=== PATIENT | male | born 1940 | race African-American/Black ===

== ENCOUNTER 2016-12-12 22:02 | Inpatient (IN) | payer MEDICARE, OTHER ==
--- NOTE | ~2016-12-12 | HP ---
Unit #: [id number] #: [id number] Patient: DEMARIO OCAMPO [id number] [address] [address] [id number] I MR#: [id number] NAME: DEMARIO OCAMPO. ROOM: 242 Age: 76 Sex: M Admission Date: 12/13/2016 : 1940 Attending Physician: Holli Noe M.D. Primary Care Physician: Satinder Villagomez M.D. HISTORY AND PHYSICAL PRESENTING COMPLAINT Patient was admitted for complaints of pain in his right knee and left leg with a diagnosis of possible septic arthritis. HISTORY OF PRESENT ILLNESS Patient had undergone left total hip replacement approximately a week ago and was transferred to rehab and was sent back because of increased pain in his left leg and right knee and, also, x-rays performed at the rehab center has possible fracture of his femur and, also, he has been suffering from postop anemia. He was transferred to the emergency room in [place] and the ER physician admitted the patient to the hospital for postop management, anemia, and possible septic arthritis of his right knee. PAST HISTORY He has history of hypertension, hyperlipidemia, bladder cancer, arthritis, and BPH. MEDICATIONS His current medications are: 1. Ascorbic acid. 2. Amlodipine. 3. Gabapentin. 4. Tamsulosin. 5. Atorvastatin. 6. Ferrous sulfate. PRIOR SURGERY He has had a right hip replacement and a recent left hip replacement. FAMILY HISTORY Not significant. PERSONAL AND SOCIAL HISTORY Currently single. Lives at home. He has one child. REVIEW OF SYSTEMS Positive for hypertension, hyperlipidemia, and bladder cancer. PHYSICAL EXAMINATION VITAL SIGNS: He currently has a temperature of 99, heart rate 97 per minute, and blood pressure 95/63. HEAD AND NECK: Normal. CARDIOVASCULAR: Heart: S1 and S2 heard. RESPIRATORY: Bilateral breath sounds heard. Unit #: [id number] #: [id number] Patient: DEMARIO OCAMPO ABDOMEN: Soft. No organomegaly. Bowel sounds present. MUSCULOSKELETAL: Left hip: Wound looks well. Has some swelling of the thigh. Has some (1) of the wound. Otherwise, unremarkable. Right knee: He has swelling, effusion, there is painful range of motion, and is tender to palpation. DIAGNOSTIC STUDIES IMAGING: X-ray of his left hip and femur reveal essentially negative, other than the recent total hip without any evidence of fracture. X-ray of the right knee reveals osteoarthritis. LABORATORY: His hemoglobin was 7.6, white count of 7, and platelets of 252,000. IMPRESSION 1. Postop anemia secondary to acute blood loss. 2. Painful right knee. Rule out septic arthritis. 3. Status post left total hip replacement. PLAN He has been admitted to the hospital for management of his postop anemia and evaluation for possible septic arthritis. He has already been given 1 unit of packed cells by the ER physician and his x-rays have been reviewed by me, namely his hip and femur. They reveal a left hip replacement without any evidence of fracture or other abnormality. His hemoglobin at time of admission is 7.6. So, we will try to aspirate his right knee and will rule out sepsis and also I am going to have Dr. Seay evaluate from a medical standpoint. Dictated by Justen Garcia/gustavo TD: 12/14/2016 13:28 JOB #: [id number] HISTORY AND PHYSICAL X Holli Noe MD X HISTORY AND PHYSICAL
--- NOTE | ~2016-12-12 | CR170 ---
[facility] A Service of [facility] RADIOLOGY TEXT RESULTS PATIENT: DEMARIO OCAMPO LOCATION: C2A 242- : 39 UNIT #: [id number] AGE: [address]: Holli Noe MD SEX: M ORDER DR: [id number] [facility] [address] [place], [place] [address] [id number] I MR#: [id number] Acc #: [id number] NAME: DEMARIO OCAMPO. : 1940 SEX: M STUDY DATE/TIME: 12/12/2016 22:23 UNIT: [facility] ROOM: 242 STUDY DESCRIPTION: CR Knee 2 Views Rt Attending Physician: Holli Noe M.D. Ordering Physician: Mahad Perla D.O. Primary Care Physician: Satinder Villagomez M.D. MEDICAL IMAGING REPORT This report is preliminary unless electronic signature is present EXAM Knee 2 views right HISTORY Right knee pain for 2 weeks. No known injury. COMMENT 2 views of the right knee reviewed. There is no prior study of the right knee. There is a moderate-sized suprapatellar joint effusion and there is probably thickening of the distal quadriceps tendon. There is tricompartmental osteoarthritis, moderate, but no acute fractures appreciated. Vascular calcifications are present. Etiology of the joint effusion is nonspecific and it could be related to osteoarthritis but please exclude any clinical concern for septic arthritis. The appearance of the thickening of the quadriceps tendon raises concern for tendinopathy. If this is a concern, it is best pursued with a non-emergent MRI of the knee. IMPRESSION 1. Moderate tricompartmental osteoarthritis with a moderate-sized suprapatellar joint effusion. The joint effusion is probably due to the arthritis but please exclude any clinical concern for septic joint. If there is concern for infection, fluid sampling recommended. 2. Concern for some thickening of the distal quadriceps tendon at the insertion on the patella. This appearance raises the possibility of some type of tendinopathy and if this is a clinical concern, it is best further evaluated with a non-emergent MRI of the knee if the patient is a candidate. No acute fracture or dislocation. Dictated by... [facility] A Service of [facility] RADIOLOGY TEXT RESULTS PATIENT: DEMARIO OCAMPO LOCATION: [facility] 242-01 : 39 UNIT #: [id number] AGE: [address]: Holli Noe MD SEX: M ORDER DR: Danae Sharma M.D. THIS IS AN ELECTRONICALLY VERIFIED REPORT Danae Sharma M.D. at 12/13/2016 10:25 AM PRERNA/moy TD: 12/13/2016 05:14 JOB #: [id number] MEDICAL IMAGING REPORT COPY
--- NOTE | ~2016-12-12 | CR150 ---
[facility] A Service of [facility] RADIOLOGY TEXT RESULTS PATIENT: DEMARIO OCAMPO LOCATION: C2A 242 : 39 UNIT #: [id number] AGE: [address]: Holli Noe MD SEX: M ORDER DR: [id number] [facility] [address] [place], [place] [address] [id number] I MR#: [id number] Acc #: [id number] NAME: DEMARIO OCAMPO : 1940 SEX: M STUDY DATE/TIME: 12/12/2016 22:26 UNIT: [facility] ROOM: 242 STUDY DESCRIPTION: CR Hip Min 2 Views Lt Attending Physician: Holli Noe M.D. Ordering Physician: Mahad Perla D.O. Primary Care Physician: Satinder Villagomez M.D. MEDICAL IMAGING REPORT This report is preliminary unless electronic signature is present EXAM Pelvis and left hip on 12/12 at 2226 hours INDICATIONS Left hip pain for the last 2 weeks. No known trauma. FINDINGS AP view of the pelvis was obtained in addition to a cross-table lateral view of the left femur. Comparison is made with the postoperative view dated 12/06/2016. Skin taylor remain in place over the left hip. Bilateral hip arthroplasties are present. These show normal alignment. There is still some soft tissue gas in the proximal thigh on the left, but it is improved since the prior study. There are no fractures. Atherosclerotic calcifications are present. IMPRESSION No acute fracture. Both hip arthroplasties demonstrate normal alignment. There is improved but persistent soft tissue gas in the left proximal thigh. This is presumably related to the recent hip arthroplasty in the absence of signs of infection. Dictated by... Nicholas Dyer Jr., M.D. THIS IS AN ELECTRONICALLY VERIFIED REPORT Nicholas Dyer Jr., M.D. at 12/13/2016 6:05 AM SOBIAK/moy TD: 12/13/2016 05:19 JOB #: [id number] [facility] A Service of [facility] RADIOLOGY TEXT RESULTS PATIENT: DEMARIO OCAMPO LOCATION: [place] [address]-01 : 39 UNIT #: [id number] AGE: [address]: Holli Noe MD SEX: M ORDER DR: MEDICAL IMAGING REPORT COPY
--- NOTE | ~2016-12-12 | CR106 ---
[facility] A Service of [facility] RADIOLOGY TEXT RESULTS PATIENT: DEMARIO OCAMPO LOCATION: C2A 242 : 39 UNIT #: [id number] AGE: [address]: Holli Noe MD SEX: M ORDER DR: [id number] [facility] [address] [place], [place] [address] [id number] I MR#: [id number] Acc #: [id number] NAME: DEMARIO OCAMPO : 1940 SEX: M STUDY DATE/TIME: 12/13/2016 22:28 UNIT: [facility] ROOM: 242 STUDY DESCRIPTION: CR Femur 2 Views Lt Attending Physician: Holli Noe M.D. Ordering Physician: Mahad Perla D.O. Primary Care Physician: Satinder Villagomez M.D. MEDICAL IMAGING REPORT This report is preliminary unless electronic signature is present EXAM Left femur 12/12 2228 hours INDICATIONS Left hip pain for 2 weeks. No trauma. FINDINGS 4 views of the left femur were obtained. The patient has a well-positioned left hip arthroplasty. No fractures are identified. There is osteoarthritis in all 3 compartments of the knee and there is diffuse atherosclerotic disease. Patient is osteopenic as well. Soft tissue gas in the lateral proximal thigh is presumably related to the recent surgery in the absence of signs of infection. IMPRESSION Well-positioned left hip arthroplasty. No fracture. There is osteopenia in addition to osteoarthritis in the knee. Soft tissue gas in the proximal thigh is presumably related to recent hip replacement in the absence of signs of infection. Dictated by... Nicholas Dyer Jr., M.D. THIS IS AN ELECTRONICALLY VERIFIED REPORT Nicholas Dyer Jr., M.D. at 12/16/2016 7:17 AM [place] TD: 12/13/2016 06:17 JOB #: [id number] MEDICAL IMAGING REPORT COPY
--- NOTE | ~2016-12-12 | CO ---
Unit #: [id number] #: [id number] Patient: DEMARIO OCAMPO [id number] [address] [address] [id number] I MR#: [id number] NAME: DEMARIO OCAMPO. ROOM: 242 Age: 76 Sex: M Admission Date: 12/13/2016 : 1940 Attending Physician: Holli Noe M.D. Primary Care Physician: Satinder Villagomez M.D. CONSULTATION REPORT REASON FOR CONSULTATION Medical management. HISTORY OF PRESENT ILLNESS Mr. Ocampo is a 76-year-old, -[place] gentleman patient of Dr. Noe's who apparently was at the correction and tried to have physical therapy; however, was unable secondary to a right knee swelling and left thigh tenderness. Patient was admitted per Dr. Noe. He is status post aspiration of the knee joint after x-ray found with some knee joint effusion and there was also some question of tendonitis on the plain x-ray. Chest x-ray was unremarkable and hip x-ray was also without any acute findings. His chemistry panel is unremarkable, except for slightly elevated direct bili of 0.3 and indirect bili of 1.4, otherwise unremarkable chemistry. White count at 7.4 and H and H 8.4 and 25.2. Patient denies any other complaints other than swelling and pain in the right knee and left thigh. Denies any fevers. Denies any nausea or vomiting. Denies any chills. Denies any headache, dizziness, chest pain, or shortness of air. REVIEW OF SYSTEMS So, 12-point review of systems on this patient is basically negative, except as above. PAST MEDICAL HISTORY Significant for hypertension, dyslipidemia, bladder cancer, and BPH. PAST SURGICAL HISTORY Significant for left shoulder surgery and hernia repair. CURRENT MEDICATIONS He is on: 1. Lipitor. 2. Lortab. 3. B12. 4. Neurontin. 5. Ferrous gluconate. 6. Norvasc. 7. Flomax. 8. Melatonin. 9. IV fluids with some D5. ALLERGIES No known drug allergies. Unit #: [id number] #: [id number] Patient: DEMARIO OCAMPO SOCIAL HISTORY No current history of tobacco, alcohol, or illicit drugs. FAMILY HISTORY Unremarkable. PHYSICAL EXAMINATION GENERAL APPEARANCE: Patient is a 76-year-old gentleman in no acute distress. VITAL SIGNS: BP 118/49, heart rate 81, respirations 17, and temperature 98. HEENT: Head is atraumatic. Pupils are equal, round, and reactive to light. Extraocular muscles intact. Oropharynx clear. NECK: Supple. No mass, no JVD, and no bruits. CHEST: Diminished at bases, but generally clear. CARDIOVASCULAR: S1 and S2. No murmurs. ABDOMEN: Soft, nontender, and nondistended. LOWER EXTREMITIES: Without any cyanosis, clubbing, or edema. There is mild swelling over the right knee and tenderness at the left thigh. NEUROLOGIC: Without any focal deficits. Alert and oriented. Answering questions appropriately. DIAGNOSTIC STUDIES As above in HPI. ASSESSMENT AND PLAN 1. Right knee effusion with some questionable tendonitis. Status post aspiration. Cultures pending along with the blood cultures are pending. White count unremarkable. Patient is afebrile. 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 Follow up on cultures. Admitted to orthopedic service. 2. Hypertension, currently stable. 3. Dyslipidemia on statin. 4. History of BPH on Flomax. 5. GI and DVT prophylaxes. Will start on Pepcid and put on TRAMAINE hose. 6. Anemia of chronic disease. Monitor H and H. I would like to thank Dr. Noe for allowing us to participate in this patient's care. Will follow the patient along with you. Dictated by... Justen Cruz/gustavo TD: 12/14/2016 10:00 JOB #: [id number] Unit #: [id number] #: [id number] Patient: DEMARIO OCAMPO CONSULTATION REPORT X Jean-Pierre Gross MD CONSULTATION REPORT
--- NOTE | ~2016-12-12 | DS ---
Unit #: [id number] #: [id number] Patient: DEMARIO OCAMPO [id number] [address] [address] [id number] I MR#: [id number] NAME: DEMARIO OCAMPO. ROOM: 242 Age: 76 Sex: M Admission Date: 12/13/2016 : 1940 Discharge Date: 12/14/2016 Attending Physician: Holli Noe M.D. Primary Care Physician: Satinder Villagomez M.D. DISCHARGE SUMMARY FINAL DIAGNOSES 1. Acute exacerbation of osteoarthritis right knee. 2. Postop anemia secondary to acute blood loss. 3. Status post left total hip replacement. PRESENTING COMPLAINT This 76 year old [facility] fracture and septic arthritis of the right knee. He was evaluated by the ER physician and admitted for the diagnosis of possible septic knee and postop anemia secondary to blood loss. The patient denies any history of trauma or fall at the rehab. He had x-rays done at [facility] and was told has possible fracture of the left femur. PAST MEDICAL HISTORY He has history of hypertension. hyperlipidemia, arthritis, bladder cancer. PAST SURGICAL HISTORY Rotator cuff surgery to his left shoulder, and both hip replacement and hernia repair. PERSONAL AND SOCIAL HISTORY He is currently single, retired, nonsmoker. FAMILY HISTORY Not significant. REVIEW OF SYSTEMS Addressed in the history and physical. PHYSICAL EXAMINATION VITAL SIGNS: He is afebrile. Pulse 91 per minute. Blood pressure 126/63. HEAD AND NECK: Examination is normal. CARDIOVASCULAR SYSTEM, RESPIRATORY AND ABDOMEN: Within normal limits. EXTREMITIES: Left foot wound is healing well. He has minimal spotting. His right knee has swelling, effusion and painful range of motion. DIAGNOSTIC STUDIES IMAGING: X-rays of his left hip and femur done were essentially negative for any fracture other than a left hip total hip replacement. COURSE IN THE HOSPITAL The patient was admitted by the ER physician to rule out septic knee. He also was identified to have a hemoglobin of 7.4. So, he had transfusion one unit of packed cells. Post admission, his hemoglobin was 8.4. He has Unit #: [id number] #: [id number] Patient: DEMARIO OCAMPO been on iron supplements. His right knee had swelling, effusion and thus painful range of motion. His right knee was aspirated and sent for gram stain, culture and cell count. His gram stain was negative. Cell count was 1,663. Culture report is pending. Clinical findings were suggestive of exacerbation of osteoarthritis. So, 80 mg of Depo-Medrol and 5 mL of 1% Xylocaine was injected into the right knee. Today, his right knee is feeling much better. He is able to actively flex and extend and his swelling and effusion have subsided. His left hip wound is unchanged. The swelling seems to be resolving and his wound has minimal spotting and is unremarkable. His hemoglobin done today is 8.8 and white count of 8.3, platelets 322,000. So, he has been started on physical therapy with toe-touch ambulation with a walker. At this time, from an orthopaedic standpoint, he is able to return back to rehab. We will continue with the same restrictions namely toe-touch ambulation to his left lower extremity and continue with the total hip precautions. He will resume his Xarelto 10 mg daily and he will continue with his regular medications. His sutures can be removed in two weeks if it looks well and he will be followed in my office in three weeks. If any problems, to contact my office. Dictated by... Justen Garcia/tommie TD: 12/14/2016 13:16 JOB #: [id number] DISCHARGE SUMMARY X Holli Noe MD X DISCHARGE SUMMARY
--- NOTE | ~2016-12-12 | CO ---
Unit #: [id number] #: [id number] Patient: DEMARIO OCAMPO [id number] [address] [place], [place] [address] [id number] I MR#: [id number] NAME: DEMARIO OCAMPO. ROOM: 242 Age: 76 Sex: M Admission Date: 12/13/2016 : 1940 Attending Physician: Holli Noe M.D. Primary Care Physician: Satinder Villagomez M.D. CONSULTATION REPORT The patient was admitted to Dr. Holli Noe. REASON FOR CONSULTATION Increasing CRP and fever. HISTORY OF PRESENT ILLNESS This is a 76-year-old male, status post left total hip replacement approximately 1-1/2 weeks ago. The patient was at the rehab facility when he began having pain in his right knee. The patient reports that his left leg has overall been getting better; however, per H and P, he did complain of some initial left leg pain. X-rays were done and he was sent to the hospital for further evaluation for concern. The patient had a film on his right knee and that did show effusion and he is status post arthrocentesis. Orthopedics is also following along with this patient. PAST MEDICAL HISTORY Include hypertension, hyperlipidemia, bladder cancer in 2011, arthritis, and BPH. ALLERGIES No known allergies. MEDICATIONS The patient is not currently on any antibiotics or other medications. Please refer to the patient's MAR. SOCIAL HISTORY The patient denies any alcohol or tobacco or IV drug use. The patient currently is in a rehab facility. REVIEW OF SYSTEMS The patient denies any fevers, chills, nausea, vomiting, or diarrhea. He denies any shortness of breath, cough, or chest pain. He does report some muscular pain in his right knee and also his left hip, where he recently had surgery; however, these are both getting better. PHYSICAL EXAMINATION VITAL SIGNS: Temperature is 97.9 with a T-max of a 100.2 since admission; pulse is 88; blood pressure is 122/66; and respiratory rate is 16. GENERAL: This is no apparent distress male, who is sitting in the bed comfortably, eating breakfast when I entered the room. HEENT: His pupils are equal. NECK: Supple. CARDIOVASCULAR: S1, S2. Regular rate and rhythm. Unit #: [id number] #: [id number] Patient: DEMARIO OCAMPO PULMONARY: Clear to auscultation bilaterally. No wheezes or rhonchi noted. ABDOMEN: Positive bowel sounds. Soft and nontender with no organomegaly appreciated. EXTREMITIES: Left hip shows incision with taylor with some scant serous drainage. There is no warmth or erythema noted. He also had a right knee with some minimal warmth. Mild edema, but he is able to move his knee up and down. DIAGNOSTIC STUDIES LABORATORY RESULTS: BUN 15, creatinine 0.9, sodium 140, potassium 3.8, chloride 105, CO2 26, BUN 15, creatinine 0.9, bilirubin 1.7. AST 30, ALT is 26. Lactic acid was 1.1. Procalcitonin 0.07. CRP is 20. White blood cell count 8.1, hemoglobin 7.7, hematocrit 22.8, platelets 360. Sed rate 111. Fluid analysis from his arthrocentesis reports total neutrophil count of 1663 with less than 10,000 RBCs, 95% neutrophils, and 1% lymphocytes. Urinalysis is unremarkable. Microbiology report showed 12/12/2016, blood cultures are negative. Synovial fluid on 12/13/2016 shows no growth and negative Gram stain. IMAGING STUDIES: Left femur films shows well-positioned hip arthroplasty with no fracture. Soft-tissue gas thought to be related to recent hip placement. Knee film shows moderate osteoarthritis with moderate-sized suprapatellar joint infusion. IMPRESSION This is a 76-year-old male, status post recent left total hip arthroplasty approximately 1-1/2 weeks ago. The patient now presents with increasing right knee pain and some resolving left hip pain. The patient was noted to have some low-grade fever and abnormal x-ray of his right knee showing effusion. The patient is status post arthrocentesis. Fluid analysis is not consistent with septic arthritis and cultures are all negative. He has been off antibiotics. The patient's increasing CRP and sedimentation rate may be related to recent surgery and arthritis. At this time, we would recommend to hold antibiotics. His fever has resolved and it may have been reactive to current process, but would continue to follow and white blood cell count has been normal. We will also recommend if the patient is transferred back to rehab to follow up on CRP and sed rate to make sure the patient is improving and monitor. Thank you for allowing us to participate in the care of this patient. Further recommendations to follow pending the patient's clinical course. Dictated by... Ishaan KeysPMarvelRMarvelNMravel for Justen Hayes/dionna TD: 12/16/2016 06:53 JOB #: [id number] Unit #: [id number] #: [id number] Patient: DEMARIO OCAMPO CONSULTATION REPORT X X CONSULTATION REPORT
--- NOTE | ~2016-12-12 | CR72 ---
[facility] A Service of [facility] RADIOLOGY TEXT RESULTS PATIENT: DEMARIO OCAMPO LOCATION: C2A [address] : 39 UNIT #: [id number] AGE: [address]: Holli Noe MD SEX: M ORDER DR: [id number] [facility] [address] [place], [place] [address] [id number] I MR#: [id number] Acc #: [id number] NAME: DEMARIO OCAMPO. : 1940 SEX: M STUDY DATE/TIME: 12/12/2016 22:22 UNIT: [facility] ROOM: [facility] STUDY DESCRIPTION: CR Chest Single View Portable Attending Physician: Holli Noe M.D. Ordering Physician: Mahad Perla D.O. Primary Care Physician: Satinder Villagomez M.D. MEDICAL IMAGING REPORT This report is preliminary unless electronic signature is present EXAM Chest x-ray, 12/12/2016. HISTORY 76-year-old male postop recent left hip arthroplasty surgery. Fever. TECHNIQUE AP portable chest x-ray. FINDINGS The lungs are expanded and clear. No visible pulmonary infiltrate or pleural effusion. Heart size and pulmonary vascularity are within normal limits. No change since the preoperative chest x-ray of 12/02/2016. IMPRESSION No active disease. The lungs are clear. No change since 12/02/2016. Dictated by... Yung Morales M.D. THIS IS AN ELECTRONICALLY VERIFIED REPORT Yung Morales M.D. at 12/13/2016 10:17 AM JULIETH/moy TD: 12/13/2016 05:09 JOB #: [id number] MEDICAL IMAGING REPORT COPY
[~2016-12-12 22:02] MED LIST: AMLODIPINE BESY10 MG PO; ASCORBIC ACID500 M4 PO; BENADRYL25 M1 PO; FERROUS SULFATE PO; FLOMAX0.4 M1 PO; HYDROCODON-ACE1 EAC7 PO; IBUPROFEN800 MG PO; LATANOPROST2.5 ML; LIPITOR PO; LIPITOR20 MG PO; LORTAB 7.51 TAB DOB; NEURONTIN PO; TYLENOL #3 PO
[2016-12-12 22:54] LABS: BASOPHIL% 0.7 % (0-2.5); EOSINOPHIL# 0.1 X10e3 (0-0.7); EOSINOPHIL% 0.9 % (0.0-7.0); HEMATOCRIT 22.8 % (38.0-50.0); HEMOGLOBIN 7.6 gm/dL (13.0-16.0); LYMPHOCYTE% 13.7 % (17.0-45.0); MEAN CELL VOLUME 87.4 FL (83-96); MEAN CORPUSCULAR HEMOGLOBIN 29.3 PG (28-34); MEAN CORPUSCULAR HGB CONC 33.5 g/dL (30-36); MEAN PLATELET VOLUME 8.4 FL (6.5-11.5); MONOCYTE# 0.7 X10e3 (0-1.0); MONOCYTE% 10.4 % (3.0-12.0); NEUTROPHIL# 5.2 X10e3 (1.5-7.1); NEUTROPHIL% 74.3 % (40-75); PLATELET COUNT 252 X10e3 (140-420); RED BLOOD COUNT 2.61 X10e (3.90-5.60); RED CELL DISTRIBUTION WIDTH 15.5 % (11.0-15.5)
[2016-12-12 22:58] LABS: DIFF IND YES
[2016-12-12 23:09] LABS: PARTIAL THROMBOPLASTIN TIME 32.2 SECONDS (23.5-31.3); PROTHROMBIN TIME (PATIENT) 10.4 SECONDS (9.6-11.5)
[2016-12-12 23:13] LABS: ALBUMIN SERUM 2.7 g/dL (3.5-5.0); ALKALINE PHOSPHATASE 47 U/L (32-92); ALT (SGPT) 26 U/L (10-40); AST (SGOT) 30 U/L (10-42); BILIRUBIN, DIRECT 0.3 mg/dL (0.0-0.2); BILIRUBIN,INDIRECT 1.4 mg/dL (0.0-0.9); BILIRUBIN,TOTAL 1.7 mg/dL (0.2-2.0); BLOOD UREA NITROGEN 17 mg/dL (9-23); BUN/CREATININE RATIO 14.16; CALCIUM SERUM 8.5 mg/dL (8.4-10.2); CARBON DIOXIDE 27 mmol/L (22-31); CHLORIDE 104 mmol/L (100-111); CREATININE SERUM 1.2 mg/dL (0.6-1.4); GLOM FILT RATE Estimated ABOVE60 mL/min (>60); GLUCOSE FASTING 104 mg/dL (70-110); POTASSIUM 3.6 mmol/L (3.5-5.1); PROTEIN TOTAL SERUM 6.1 g/dL (6.0-8.3); SODIUM 140 mmol/L (135-145)
[2016-12-12 23:30] LABS: ANISOCYTOSIS SL; PLATELET ESTIMATE NORMAL (NORMAL)
[2016-12-12 23:50] LABS: URINE SOURCE CLEAN CATCH
[2016-12-12 23:54] LABS: URINE APPEARANCE CLEAR; URINE BILIRUBIN NEG (NEG); URINE BLOOD NEG (NEG); URINE COLOR YELLOW; URINE GLUCOSE NEG (NEG); URINE KETONE TRACE (NEG); URINE LEUKOCYTE ESTERASE TRACE (NEG); URINE NITRATE NEG (NEG); URINE PROTEIN 1+ (NEG); URINE SPECIFIC GRAVITY 1.025 (1.003-1.035)
[2016-12-12 23:57] LABS: URINE BACTERIA AUWI NEG (NEGATIVE); URINE SQUAMOUS EPITHELIAL CELL OCC /[HPF]; UWBCS1 AUWI 0-2 (0-5)
[2016-12-12 23:58] LABS: CULTURE INDICATED? NO
[2016-12-13] MEDS ORDERED: XARELTO10 MG PO (00:02)
[2016-12-13] MEDS ORDERED: VITAMIN C PO (00:03)
[2016-12-13] MEDS ORDERED: HYDROCODONE-A1 UDTA4 PO (00:04)
[2016-12-13] MEDS ORDERED: MELATONIN5 M1 PO (00:05)
[2016-12-13 04:41] LABS: URINE APPEARANCE CLEAR; URINE BILIRUBIN NEG (NEG); URINE BLOOD NEG (NEG); URINE COLOR YELLOW; URINE GLUCOSE NEG (NEG); URINE KETONE NEG (NEG); URINE LEUKOCYTE ESTERASE NEG (NEG); URINE NITRATE NEG (NEG); URINE PROTEIN TRACE (NEG); URINE SPECIFIC GRAVITY 1.021 (1.003-1.035)
[2016-12-13 04:47] LABS: CULTURE INDICATED? NO
[2016-12-13 06:07] LABS: BASOPHIL% 0.5 % (0-2.5); EOSINOPHIL# 0.1 X10e3 (0-0.7); EOSINOPHIL% 1.3 % (0.0-7.0); HEMATOCRIT 25.2 % (38.0-50.0); HEMOGLOBIN 8.4 gm/dL (13.0-16.0); LYMPHOCYTE# 0.9 X10e3 (1.0-3.5); LYMPHOCYTE% 11.8 % (17.0-45.0); MEAN CELL VOLUME 85.7 FL (83-96); MEAN CORPUSCULAR HEMOGLOBIN 28.5 PG (28-34); MEAN CORPUSCULAR HGB CONC 33.3 g/dL (30-36); MEAN PLATELET VOLUME 7.8 FL (6.5-11.5); MONOCYTE# 0.7 X10e3 (0-1.0); NEUTROPHIL# 5.7 X10e3 (1.5-7.1); NEUTROPHIL% 76.4 % (40-75); PLATELET COUNT 242 X10e3 (140-420); RED BLOOD COUNT 2.94 X10e (3.90-5.60); RED CELL DISTRIBUTION WIDTH 15.7 % (11.0-15.5); WHITE BLOOD COUNT 7.4 X10e3 (4.0-10.5)
[2016-12-13 06:11] LABS: DIFF IND NO
[2016-12-13 18:17] LABS: BF TOTAL NUCLEATED CELL COUNT 1663 CMM (0-100); BODY FLUID APPEARANCE HAZY; BODY FLUID SOURCE SYNOVIAL
[2016-12-13 18:18] LABS: BODY FLUID RBC <10000 CMM
[2016-12-14 05:31] LABS: BASOPHIL% 0.6 % (0-2.5); EOSINOPHIL# 0.1 X10e3 (0-0.7); EOSINOPHIL% 1.2 % (0.0-7.0); HEMATOCRIT 26.7 % (38.0-50.0); HEMOGLOBIN 8.8 gm/dL (13.0-16.0); LYMPHOCYTE% 11.7 % (17.0-45.0); MEAN CELL VOLUME 86.2 FL (83-96); MEAN CORPUSCULAR HEMOGLOBIN 28.5 PG (28-34); MEAN CORPUSCULAR HGB CONC 33.1 g/dL (30-36); MEAN PLATELET VOLUME 7.6 FL (6.5-11.5); MONOCYTE# 0.6 X10e3 (0-1.0); MONOCYTE% 7.7 % (3.0-12.0); NEUTROPHIL# 6.5 X10e3 (1.5-7.1); NEUTROPHIL% 78.8 % (40-75); PLATELET COUNT 322 X10e3 (140-420); RED BLOOD COUNT 3.09 X10e (3.90-5.60); RED CELL DISTRIBUTION WIDTH 15.8 % (11.0-15.5); WHITE BLOOD COUNT 8.3 X10e3 (4.0-10.5)
[2016-12-14 05:36] LABS: DIFF IND NO
[2016-12-14 06:38] LABS: BLOOD UREA NITROGEN 15 mg/dL (9-23); BUN/CREATININE RATIO 16.66; CALCIUM SERUM 8.9 mg/dL (8.4-10.2); CARBON DIOXIDE 26 mmol/L (22-31); CHLORIDE 105 mmol/L (100-111); CREATININE SERUM 0.9 mg/dL (0.6-1.4); GLOM FILT RATE Estimated ABOVE60 mL/min (>60); GLUCOSE FASTING 113 mg/dL (70-110); POTASSIUM 3.8 mmol/L (3.5-5.1); SODIUM 140 mmol/L (135-145)
[2016-12-14 06:46] LABS: PROCALCITONIN 0.07 NG/ML
[2016-12-15 05:13] LABS: BASOPHIL% 0.6 % (0-2.5); EOSINOPHIL# 0.1 X10e3 (0-0.7); EOSINOPHIL% 1.6 % (0.0-7.0); HEMATOCRIT 22.8 % (38.0-50.0); HEMOGLOBIN 7.7 gm/dL (13.0-16.0); LYMPHOCYTE% 12.4 % (17.0-45.0); MEAN CELL VOLUME 85.9 FL (83-96); MEAN CORPUSCULAR HEMOGLOBIN 29.2 PG (28-34); MEAN PLATELET VOLUME 7.6 FL (6.5-11.5); MONOCYTE# 0.7 X10e3 (0-1.0); MONOCYTE% 9.3 % (3.0-12.0); NEUTROPHIL# 6.1 X10e3 (1.5-7.1); NEUTROPHIL% 76.1 % (40-75); PLATELET COUNT 360 X10e3 (140-420); RED BLOOD COUNT 2.65 X10e (3.90-5.60); RED CELL DISTRIBUTION WIDTH 15.7 % (11.0-15.5); WHITE BLOOD COUNT 8.1 X10e3 (4.0-10.5)
[2016-12-15 05:14] LABS: DIFF IND YES
[2016-12-15 05:50] LABS: ANISOCYTOSIS SL; PLATELET ESTIMATE NORMAL (NORMAL); POIKILOCYTOSIS SL
== END 2016-12-15 17:04 | DRG 565 ==
LOC: CED 22:02 → CEDOF 23:59 → C2A 12-15 11:45
PROVIDERS: Emergency Medicine; Hospitalist; Orthopaedic Surgery
PROC: 0S9C3ZZ Drainage of Right Knee Joint, Percutaneous Approach (ICD-10-PCS; principal; 2016-12-15)
PROC: 3E0U33Z Introduction of Anti-inflammatory into Joints, Percutaneous Approach (ICD-10-PCS; 2016-12-15)
PROC: 3E0U3BZ Introduction of Anesthetic Agent into Joints, Percutaneous Approach (ICD-10-PCS; 2016-12-15)
DX: M25.461 Effusion, right knee (principal); D62 Acute posthemorrhagic anemia; I10 Essential (primary) hypertension; M17.11 Unilateral primary osteoarthritis, right knee; E78.5 Hyperlipidemia, unspecified; Z85.51 Personal history of malignant neoplasm of bladder; N40.0 Benign prostatic hyperplasia without lower urinary tract symptoms; Z96.642 Presence of left artificial hip joint
CPT/HCPCS: 36415; 71010; 73502; 73552; 73560; 80048; 80076; 81003; 82308; 83605; 85025; 85610; 85652; 85730; 86140; 86850; 86900; 86901; 86923; 87040; 87070; 87205; 89051; 97110; 97116; 97162; 97530; 99285; G8978-GP; G8979-GP; G8980-GP; J1040; P9016